=== PATIENT | female | born 1925 | race Caucasian/White ===

== ENCOUNTER → 2016-07-30 | Day surgery (SDC) | payer MEDICARE ==
[~2016-07-30] MED LIST: COUM5TAB PO; LACTATED RINGER'S 1000 ML INJ 1,000 ML ONE; METO50TA PO; NAPR500 PO; PROPOFOL 200 MG/20 ML AMP IV ONE; VICO7.5T PO
--- NOTE | 2016-07-30 10:41 | GIPROC ---
[facility] [address] [facility], [address] COLONOSCOPY PROCEDURE REPORT EXAM DATE: 07/30/2016 PATIENT NAME: Kristen Munoz MR #: [id number] BIRTHDATE: 1925 ENDOSCOPIST: Aashish Sotelo MD ORDER #: [id number] CASKET TRIMMER: Emiliana Montgomery RN STATUS: outpatient INDICATIONS: The patient is a 89 yr old female here for a colonoscopy due to constipation and high risk patient with personal history of colonic polyps PROCEDURE PERFORMED: Colonoscopy with polypectomy MEDICATIONS: None and Per Anesthesia. PREP QUALITY: good ESTIMATED BLOOD LOSS: None CONSENT: The patient understands the risks and benefits of the procedure and understands that these risks include, but are not limited to: sedation, allergic reaction, infection, perforation and/or bleeding. Alternative means of evaluation and treatment include, among others: physical exam, x-rays, and/or surgical intervention. The patient elects to proceed with this endoscopic procedure. medical equipment was checked for proper function. Hand hygiene and appropriate measures for infection prevention was taken. After the risks, benefits and alternatives of the procedure were thoroughly explained, Informed consent was verified, confirmed and timeout was successfully executed by the treatment team. A digital exam revealed no abnormalities of the rectum The EC-[id number] ([id number]) endoscope was introduced through the anus and advanced to the cecum, which was identified by both the appendix and ileocecal valve. The instrument was then slowly withdrawn as the colon was fully examined. COLON FINDINGS: 2 polyps in the ascending colon 1 cm each removed by snare. Moderate diverticulosis was noted throughout the entire examined colon. The colon mucosa was otherwise normal. Retroflexed views revealed no abnormalities The scope was then completely withdrawn from the patient and the procedure terminated. ADVERSE EVENTS: There were no complications. IMPRESSIONS: 1. 2 polyps in the ascending colon 1 cm each removed by snare 2. Moderate diverticulosis was noted throughout the entire examined colon 3. The colon mucosa was otherwise normal 4. Retroflexed views revealed no abnormalities 5. Revealed no abnormalities of the rectum RECOMMENDATIONS: 1. Await biopsy results. Biopsy results will not be ready for 7-10 days. If you don't hear from us in two weeks, call our office for results. 2. Benefiber 2 tsp daily 3. High fiber diet 4. Yearly hemoccult 5. May add stool stofener as needed RECALL: Return 3 years Colonoscopy Aashish Sotelo MD eSigned: Aashish Sotelo MD 07/30/2016 10:41 AM cc: Rishabh De Luna M.D.
== END | disposition home or self-care (01) ==
LOC: ESDC 08:33
PROVIDERS: ATTEND Hospitalist
DX: K59.00 Constipation, unspecified (principal); Z86.010 Personal history of colon polyps; D12.2 Benign neoplasm of ascending colon; K57.90 Diverticulosis of intestine, part unspecified, without perforation or abscess without bleeding
CPT/HCPCS: 00810; 45385; 88305; J7120